=== PATIENT | female | born 1945 | race Caucasian/White ===

== ENCOUNTER → 2018-08-07 | Outpatient (CLI) | payer MEDICARE, OTHER ==
--- NOTE | 2018-08-07 15:26 | RAD ---
EXAM: Right lower extremity bone length study. HISTORY: Pain. Tracy and Nephew protocol. COMPARISON: None. FINDINGS: Frontal views of the right lower extremity are obtained. There is no fracture, dislocation or subluxation. There is medial compartment joint space narrowing, subchondral sclerosis, subchondral cyst formation and spurring involving the knee. There is also lateral compartment spurring. There is a suspected small intrajugular osteophyte lateral to the tibial spines. IMPRESSION: 1. Medial compartment osteoarthritis of the right knee. 2. No acute osseous finding. Electronically signed by: Eugenia Colindres MD (08/07/2018 3:22 PM) [facility]
--- NOTE | 2018-08-07 16:01 | RAD ---
MR of the right knee - Tracy and Nephew protocol History: Chronic right knee pain, Tracy and nephew protocol.. Technique: Images are obtained in accordance with the standard Tracy and Nephew protocol. Note this is not a diagnostic exam, but solely for the purpose of Tracy and Neph[employer]Read medical staff director construction. Small joint effusion. Medial meniscal tear. Primary osteoarthritis is identified, seen is greatest at the medial joint compartment. Electronically signed by: Alonzo Duenas MD (08/07/2018 3:57 PM) [facility]
== END | disposition home or self-care (01) ==
LOC: RAD 13:55
PROVIDERS: ATTEND Orthopaedic Surgery
DX: Z01.818 Encounter for other preprocedural examination (principal); S83.241A Other tear of medial meniscus, current injury, right knee, initial encounter; M17.11 Unilateral primary osteoarthritis, right knee; M85.661 Other cyst of bone, right lower leg; M76.891 Other specified enthesopathies of right lower limb, excluding foot; M25.461 Effusion, right knee; X58.XXXA Exposure to other specified factors, initial encounter; Y93.89 Activity, other specified; Y92.89 Other specified places as the place of occurrence of the external cause; Y99.8 Other external cause status
CPT/HCPCS: 73721; 77073

== ENCOUNTER → 2018-08-18 | Outpatient (CLI) | payer MEDICARE, OTHER ==
[~2018-08-18] MED LIST: ASCO100T4 PO; ASPI-630 PO; CALC-104 PO; CYAN500T17 PO; FERR325T14 PO; GUAI1CAP16 PO; VITA400C6 PO
[2018-08-18 10:09] LABS: BASO # 0.1 x10^3/uL (0.0-0.2); BASO % 1 % (0-3); EOS # 0.2 x10^3/uL (0.0-0.7); EOS % 3 % (0-3); HEMATOCRIT 42.2 % (36.0-47.0); HEMOGLOBIN 13.6 g/dL (12.0-15.5); LYMPH # 1.5 x10^3/uL (1.0-4.8); LYMPH % 26 % (24-48); MEAN CORPUSCULAR HEMOGLOBIN 29 pg (25-35); MEAN CORPUSCULAR HGB CONC 32 g/dL (31-37); MEAN CORPUSCULAR VOLUME 91 fL (79-100); MONO # 0.4 x10^3/uL (0.0-1.1); MONO % 6 % (0-9); NEUT # 3.6 x10^3uL (1.8-7.7); NEUT % 64 % (31-73); PLATELET COUNT 245 x10^3/uL (140-400); RED BLOOD COUNT 4.64 x10^6/uL (3.50-5.40); RED CELL DISTRIBUTION WIDTH 12.4 % (11.5-14.5); WHITE BLOOD COUNT 5.7 x10^3/uL (4.0-11.0)
[2018-08-18 10:22] LABS: ALBUMIN 3.7 g/dL (3.4-5.0); CALCIUM 9.2 mg/dL (8.5-10.1); CREATININE 0.7 mg/dL (0.6-1.0); GFR 82.3; POTASSIUM 4.2 mmol/L (3.5-5.1)
--- NOTE | 2018-08-18 13:16 | EKG ---
[facility] [address] [place] [address] Test Date: 2018-08-18 Test Time: 13:01:00 Pat Name: DANIELLE URIOSTEGUI Department: Patient ID: [facility]-[id number] Room: Gender: F Sales Enablement Lead: [facility] : 1945 Requested By: JEFRY HILL Order Number: [id number] Reading MD: Laureano Padilla MD Measurements Intervals [place] Rate: 52 P: 45 NE: 144 QRS: 34 QRSD: 70 T: 66 QT: 414 QTc: 387 Interpretive Statements SINUS RHYTHM Electronically Signed On 08-19-2018 10:42:04 HISTORY PROFESSOR by Laureano Padilla MD
--- NOTE | 2018-08-18 15:28 | RAD ---
Examination: CHEST PA LATERAL History: PREOP EVALUATION, HX HYPERTENTION, HX ELEVATED BMI Comparison/Correlation: None Findings: PA and lateral views of chest were obtained. Heart size is normal. Pulmonary vasculature is unremarkable. No pneumothorax. Eventration right hemidiaphragm suggested. No suspicious infiltrate. No pleural effusion or pneumothorax. Osteopenia. Impression: No suspicious process. Electronically signed by: Fabian Swift MD (08/18/2018 3:23 PM) [facility]
[2018-08-18 16:21] LABS: BILIRUBIN,URINE NEGATIVE (NEG); CLARITY,URINE CLEAR; COLOR,URINE YELLOW; NITRITE,URINE NEGATIVE (NEG); PROTEIN,URINE NEGATIVE (NEG-TRACE); UROBILINOGEN,URINE 0.2 mg/dL (0.2 mg/dL)
[2018-08-18 16:28] LABS: BACTERIA,URINE 0 /HPF (0-FEW); RBC,URINE 0 /HPF (0-2); SQUAMOUS EPITHELIAL CELL,UR FEW /LPF; WBC,URINE 0 /HPF (0-4)
== END | disposition home or self-care (01) ==
LOC: SURGPAT 12:17
PROVIDERS: ATTEND Orthopaedic Surgery
DX: Z01.818 Encounter for other preprocedural examination (principal); M17.11 Unilateral primary osteoarthritis, right knee
CPT/HCPCS: 36415; 71046; 80048; 81001; 82040; 82306; 85025; 85610; 85651; 85730; 87641; 93005

== ENCOUNTER 2018-09-09 05:40 | Inpatient (IN) | payer MEDICARE, OTHER ==
--- NOTE | 2018-09-08 19:28 | PDOC1 ---
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 PT has not helped. Celebrex does help. Uses Ice and elevation. She had X-rays in at [facility]. She complains of quite a bit of stiffness. She cannot walk a quarter mile. Has increased pain going downstairs and increasing difficulty on stairs. She would like to keep working. Past Medical History Past Medical History prediabetes, prehypertension Past Surgical History Past Surgical History: Arthroscopy, Cholecystectomy Family History Family History: Family History Unknown Social History Smoke: No ALCOHOL: occassional Current Medications Current Medications Current Medications Morphine Sulfate 5 mg/Ketorolac Tromethamine 30 mg/Ropivacaine 60 ml/ Epinephrine HCl 0.5 mg/Sodium Chloride 100 ml @ 100 mls/hr 1X ONCE INT ART ; Start 09/09/18 at 06:00; Stop 09/09/18 at 06:59 Prochlorperazine Edisylate (Compazine) 5 mg PACU PRN PRN IV NAUSEA, MRX1; Start 09/09/18 at 07:00; Stop 09/10/18 at 06:59 Hydromorphone HCl (Dilaudid) 0.5 mg PRN Q10MIN PRN IV SEV PAIN, Second choice; Start 09/09/18 at 07:00; Stop 09/10/18 at 06:59 Lidocaine HCl (Xylocaine-Mpf 1% 2ml Vial) 2 ml PRN 1X PRN ID IV START; Start at 07:00; Stop 09/10/18 at 06:59 Ringer's Solution 1,000 ml @ 30 mls/hr Q24H IV ; Start 09/09/18 at 07:00; Stop 09/09/18 at 18:59 Morphine Sulfate (Morphine Sulfate) 1 mg PRN Q10MIN PRN IV SEVERE PAIN; Start 09/09/18 at 07:00; Stop 09/10/18 at 06:59 Fentanyl Citrate (Fentanyl 2ml Vial) 50 mcg PRN Q5MIN PRN IV MODERATE TO SEVERE PAIN; Start 09/09/18 at 07:00; Stop 09/10/18 at 06:59 Fentanyl Citrate (Fentanyl 2ml Vial) 25 mcg PRN Q5MIN PRN IV MILD PAIN; Start 09/09/18 at 07:00; Stop 09/10/18 at 06:59 Ondansetron HCl (Zofran) 4 mg PRN Q6HRS PRN IV NAUSEA/VOMITING; Start 09/09/18 at 07:00; Stop 09/10/18 at 06:59 Cefazolin Sodium/ Dextrose 50 ml @ 100 mls/hr 1X PREOP PRN IV PRIOR TO PROCEDURE; Start 09/09/18 at 06:00; Stop 09/09/18 at 18:00 Tranexamic Acid 1000 mg/Sodium Chloride 60 ml @ 60 mls/hr 1X PERIOP ONCE INJ ; Start 09/09/18 at 06:00; Stop 09/09/18 at 06:59 Tranexamic Acid 1000 mg/Sodium Chloride 60 ml @ 60 mls/hr 1X PERIOP ONCE INJ ; Start 09/09/18 at 08:00; Stop 09/09/18 at 08:59 Active Scripts Active Reported Vitamin E (Vitamin E (Dl,Tocopheryl Acet)) 400 Unit Capsule 400 Unit PO DAILY Aspirin 81 Mg Tab.chew 81 Mg PO DAILY Robitussin Qzdkt-Krpqx-Muxq Dm (Guaifenesin/Dextromethorphan) 1 Each Capsule 1 Each PO PRN DAILY PRN B-12 (Cyanocobalamin (Vitamin B-12)) 500 Mcg Tablet 500 Mcg PO DAILY Vitamin C (Ascorbic Acid) 100 Mg Tablet 1,000 Mg PO DAILY Citracal + D Maximum Caplet (Calcium Citrate/Vitamin D3) 1 Each Tablet 1 Each PO DAILY Ferrous Sulfate 325 Mg Tablet 30 Mg PO DAILY Allergies Allergies: Coded Allergies: No Known Drug Allergies (Unverified , 08/14/18) ROS Review of System CONSTITUTIONAL: Fever denies. Chills denies. Weight gain denies. Weakness none. weight loss denies. Fatigue none. OPHTHALMOLOGY: Blurred vision none. Double vision denies. Change in vision none. ENT: Hearing loss none. Change in voice denies. Rhinorrhea none. CARDIOLOGY: Palpitations none. Shortness of breath denies. Chest pain denies. GASTROENTEROLOGY: Diarrhea denies. Vomiting none. Dysphagia none. UROLOGY: Voiding normally yes. Hematuria none. MUSCULOSKELETAL: Chronic back or neck pain denies. Swelling of the feet, hands, ankles and /or legs denies. Joint pain no. DERMATOLOGY: Rash denies. Lumps none. NEUROLOGY: Dizziness/lightheadedness denies. Double vision, temporary blindness denies. Tingling/numbness none. PSYCHOLOGY: Change in mood or personality denies. Memory loss none. ENDOCRINOLOGY: Obesity denies. Fatigue none. Weight loss none. HEMATOLOGY/LYMPH: Hepatitis denies. Enlarged lymph nodes denies. Physical Exam General: Alert, Cooperative, No acute distress HEENT: Atraumatic Lungs: Normal air movement Heart: RRR Abdomen: Soft Extremities: No clubbing, No cyanosis, No edema, Normal pulses, Other (Knee The RIGHT knee shows a mildly antalgic gait. There is varus alignment. No masses. No detectable effusion. Tenderness on the joint lines. Range of motion is 0-120 degrees. There is crepitus with range of motion, and pain at the extremes of motion. The knee is stable to varus and valgus stress without subluxation or laxity. Muscle strength is slightly weak for the quadriceps 4+/5 which may be due to pain or avoidance, and does not seem neurogenic, and the muscle tone and bulk is slightly decreased. The hamstring strength is 5/5. The skin is normal with no scars, rashes, lesions or ulcers. Light touch sensation is intact. Trace edema edema and no varicosities. Dorsalis pedis pulse is intact and capillary refill is normal. ) Skin: No rashes, No breakdown, No significant lesion Neuro: Normal speech, Sensation intact Psych/Mental Status: Mental status NL, Mood NL Images Images I reviewed her x-rays from 2018 from [facility], showing [id number] arthritis of both knees medially. [facility] [address] [place], [place] [id number] IMAGING REPORT Signed PATIENT: DANIELLE URIOSTEGUI ACCOUNT: [id number] : 1945 LOCATION: [facility] AGE: 73 SEX: F EXAM STATUS: REG CLI ORD. PHYSICIAN: JEFRY HILL MD REASON: PROCEDURE: LOWER EXT JOINT WO RT MR of the right knee - Tracy and Nephew protocol History: Chronic right knee pain, Tracy and nephew protocol.. Technique: Images are obtained in accordance with the standard Tracy and Nephew protocol. Note this is not a diagnostic exam, but solely for the purpose of Tracy and Nephew medical case manager construction. Small joint effusion. Medial meniscal tear. Primary osteoarthritis is identified, seen is greatest at the medial joint compartment. Electronically signed by: Kari Duenas MD (08/07/2018 3:57 PM) [facility] DICTATED and SIGNED BY: KARI DUENAS MD DATE: 08/07/18 1554 VTE Prophylaxis Ordered VTE Prophylaxis Devices: Yes VTE Pharmacological Prophylaxi: Yes Assessment/Plan Assessment/Plan 73-year-old relatively healthy woman with bone on bone arthritis of both knees. I recommend right total knee arthroplasty at this time. We discussed the potential risks of infection, neurovascular injury, bleeding, blood clots, need for revision surgery, or other potential surgical or anesthetic complications. All of her questions about surgery were answered and she desires to proceed. I recommended the patient matched cutting blocks which have been manufactured. JEFRY HILL MD Sep 08, 2018 19:28
[~2018-09-09] VITALS: Ht 154.9 cm; Wt 70.3 kg
[2018-09-09] VITALS (8 sets, daily range): BP systolic 120–137; BP diastolic 50–58
[2018-09-09] MEDS ORDERED: TRANEXAMIC ACID 1,000 MG in IV NORMAL SALINE 50ML 50 ML INJ ONE ×2 (06:00→08:00)
[2018-09-09] MEDS ORDERED: MORPHINE SULFATE 5 MG, KETOROLAC 30MG VIAL 30 MG, ROPIVacaine 0.5% PF 60 ML, EPINEPHrin... INT ART ONE ×5 (06:00)
[2018-09-09] MEDS ORDERED: ATOR10TA PO (06:13)
[2018-09-09] MEDS: HYDROcodone/APAP 7.5/325MG 1 TAB TABLET PO PRN ×2 (06:26→11:50)
[2018-09-09] MEDS ORDERED: VANCOMYCIN 1 GM VIAL. ONE ×2 (06:53)
[2018-09-09] MEDS ORDERED: TOBRAMYCIN POWDER 1.2 GM VIAL. ONE ×3 (06:53→06:54)
[2018-09-09] MEDS ORDERED: LIDOCAINE 2% PF 5 ML VIAL. ONE (06:56)
[2018-09-09] MEDS ORDERED: MIDAZOLAM HCL/PF 2 MG/2 ML VIAL. ONE (06:56)
[2018-09-09] MEDS ORDERED: PROPOFOL 20 ML IV ONE (06:56)
[2018-09-09] MEDS ORDERED: FAMOTIDINE 20 MG/2 ML VIAL ONE (06:56)
[2018-09-09] MEDS ORDERED: ROCURONIUM 50 MG/5 ML VIAL. ONE (06:56)
[2018-09-09] MEDS ORDERED: DEXAMETHASONE SOD PHOS 20 MG/5 ML VIAL. ONE (06:56)
[2018-09-09] MEDS ORDERED: ONDANSETRON PF 4 MG/2 ML VIAL. ONE (06:56)
[2018-09-09] MEDS ORDERED: fentaNYL PF VIAL 100 MCG/2 ML VIAL ONE ×2 (06:56→08:16)
[2018-09-09] MEDS ORDERED: HYDROmorphone 2 MG/ML VIAL IV PRN (07:00)
[2018-09-09] MEDS ORDERED: PROCHLORPERAZINE 10 MG/2 ML VIAL. IV PRN (07:00)
[2018-09-09] MEDS ORDERED: ONDANSETRON PF 4 MG/2 ML VIAL. IV PRN (07:00)
[2018-09-09] MEDS ORDERED: fentaNYL PF VIAL 100 MCG/2 ML VIAL IV PRN ×3 (07:00→17:00)
[2018-09-09] MEDS ORDERED: LIDOCAINE 1% PF 2 ML VIAL. ID PRN (07:00)
[2018-09-09] MEDS ORDERED: IV RINGERS,LACTATED 1000ML 1,000 ML IV SCH (07:00)
[2018-09-09] MEDS ORDERED: MORPHINE SULFATE 2 MG/ML VIAL. IV PRN (07:00)
[2018-09-09] MEDS ORDERED: 0.9 % SODIUM CHLORIDE 20 ML VIAL. IJ ONE (07:57)
[2018-09-09] MEDS ORDERED: GLYCOPYRROLATE 1 MG/5 ML VIAL. ONE (08:01)
[2018-09-09] MEDS ORDERED: DESFLURANE > 120 MINUTES IH ONE (09:04)
[2018-09-09] MEDS ORDERED: NEOSTIGMINE 10 MG/10 ML VIAL. ONE (09:10)
[2018-09-09] MEDS ORDERED: diphenhydrAMINE 50 MG/ML VIAL ONE (09:33)
--- NOTE | 2018-09-09 10:22 | PDOC4 ---
Operative Note Operative Note Date of Procedure: September 09, 2018 Pre-Op Diagnosis: Unilateral primary osteoarthritis, right knee. M17.11 Post-Op Diagnosis: same Procedure: right total knee arthroplasty with patella resurfacing, CPT 48148 Surgeon: Jefry Medrano MD Anesthesia: General EBL: 150 mL Specimens Obtained: right knee bone and soft tissue Complications: none Implant Company: [employer] Drains: hemovac plus pain catheter Tourniquet time: 53 Minutes Tourniquet Pressure: 350 mm Hg Indications for Procedure: Arthritis pain unrelieved by nonoperative management. Findings: Severe osteoarthritis with bone on bone contact medially with full thickness cartilage loss in the patellofemoral and lateral compartments Implants used: Size 3 right bicruciate stabilized Journey II BCS cobalt chrome femoral component, size 2 right Journey nonporous tibial baseplate, size 1-2 13 mm right Journey II BCS XLPE articular insert, 29 mm oval Sarita II resurfacing patellar component Procedure in Detail: The patient was identified in the preoperative holding area, and the correct right lower extremity was marked by me. The patient was taken to the operating room where the patient was anesthetized by the Department of Anesthesia. Preoperative antibiotics were given intravenously. Tranexamic acid 1 g was given intravenously for intraoperative hemostasis. A "time-out" procedure was performed. The patient was positioned supine on the operative table with a tourniquet on the upper right thigh. The right lower limb was thoroughly scrubbed, then sterile surgical prep solution was applied, and the limb was draped in sterile fashion. An impervious stockinet and adhesive drape were used such that the skin was entirely covered. An Soto leg mejia was used. The operating team wore personal exhaust-ventilated hoods. The limb exsanguinated with an Esmarch bandage, and the tourniquet was inflated. A midline skin incision was made with a scalpel using the patella and tibial tubercle as landmarks. Electrocautery was used for hemostasis. My assistant plant control operator used rake retractors. A medial parapatellar arthrotomy incision was used with extension into the distal quadriceps tendon. The patella was retracted laterally and Hohmann retractors were now used by my assistant plant control operator. Excess synovium, the menisci, and the cruciate ligaments were resected sharply. The patella was assessed and excess synovium and osteophytes around the patellar articulation were removed. The patella was measured with a caliper, cut freehand with a saw using caliper measurements, sized, and then drilled for an oval three-pegged patella component. A periarticular multimodal ropivacaine anesthetic injection was used in the suprapatellar pouch and distal quadriceps muscle. Whitesides's line and the transepicondylar axis were marked on the femur. A [employer] patient matched cutting block was pinned to the distal femur and a distal femoral cut was made with an oscillating saw. My assistant plant control operator held Hohmann retractors and an [facility] retractor to protect the medial and lateral collateral ligaments, the patellar tendon, the skin and the other soft tissues. A 5-in-1 Journey II cutting guide was then applied and pinned to the femur. The posterior, anterior, and all chamfer cuts were made with the oscillating saw. The [employer] patient matched cutting guide was pinned to the tibia and rotational alignment and the planned resection thickness assessed. An external alignment ghazal was used to verify the planned cut in the varus-valgus plane and regarding posterior slope referencing the tibial tubercle, the tibial shaft, the ankle joint, and the second metatarsal. The upper tibia was cut made with an oscillating saw. My assistant plant control operator held Hohmann retractors and a posterior cruciate ligament retractor to protect the medial and lateral collateral ligaments, the patellar tendon, the skin, the peroneal nerve and the other soft tissues. The upper tibia was sized with a trial baseplate. The posterior compartment was cleared of osteophytes and loose bodies. The periarticular anesthetic injection was used in the posterior compartment. The box cut for a posterior stabilized component was made. A preliminary reduction was performed with a trial femur, trial tibial baseplate and trial polyethylene. Soft-tissue balancing was now performed, and extension and rotation of the alignments was checked using a guide ghazal in the tibial trial and a guide pin in the femur. A medial release was required, using a 10 blade scalpel, and a Healy elevator to elevate the medial structures from the upper medial tibia. The stability was assessed using different thicknesses of tibial articular surface to find satisfactory stability and good range of motion. The rotation of the tibial component was marked on the upper tibia. Final trial reduction was now performed verifying patella tracking and tibiofemoral stability and alignment. The tibia preparation was completed with a drill, saw, and fin punch at the previously noted rotation. The final implants were verified and opened. Outer gloves were changed by the operating team. The bone cuts were washed thoroughly with the Nael InterPulse device and dried. Two packages of Tracy + Nephew Rally MV bone cement were mixed in powdered form with Vancomycin 1gm and Tobramycin 1.2 gm, and then vacuum-mixed with the monomer, and placed into a cement gun. The cut surfaces of the bone were thoroughly dried with Álvarez-tip suction and with laparotomy sponges for cement interdigitation. The final components were cemented into place. The knee was kept at full extension while the cement hardened, and excess cement was removed. A Betadine lavage was used throughout the surgical exposure, and allowed to sit in contact with the exposed joint surfaces for three minutes while the cement hardened. Tranexamic acid 1 g was redosed intravenously for additional intraoperative hemostasis. The tourniquet was released, and electrocautery was used for hemostasis. A final periarticular anesthetic injection was used for pain relief. A final check of [id number]-[id number] and stability was made, and the polyethylene implant final size was chosen. The polyethylene implant was secured to the tibial baseplate, and the knee was reduced a final time and range of motion and stability was confirmed. Thorough irrigation was used. Hemovac and pain catheter were used.The arthrotomy was closed with interrupted [id number]-wr-[id number] # 1 PDS suture. The arthrotomy incision was then run with #1 STRATAFIX Symmetric PDS Plus Knotless suture. The subcutaneous tissues were reapproximated initially with 2-0 PDS . Next the subcuticular layer was reapproximated in a running fashion with #3-0 Stratafix suture by dc. The skin incision was then covered and reinforced with Acticoat , followed by a LIZETH single use negative pressure wound therapy dressing Soft roll and an Tod wrap were applied. Needle and sponge counts were correct. There were no apparent complications. The patient returned to the recovery room in stable condition. JEFRY MEDRANO MD Sep 09, 2018 10:22
--- NOTE | 2018-09-09 10:45 | NUR ---
Arrived on the unit by bed from PACU. Awake with no c/o at this time. Right knee elevated on pillow and ice packs. Dressing on right knee is d/i with LIZETH, IAC and Hemovac drain. Able to wiggle toes easily, warm to touch and pedal pulses + bilaterally. IVF's intact and infusing. O2 at 2l per n/c. ALEKSANDER and SCD on left leg and KINA on right foot. Oriented to room and controls. Side rails up x's 2 with call light in reach. Cont. monitor.
--- NOTE | 2018-09-09 11:00 | RAD ---
EXAM: Right knee, 2 views. HISTORY: Arthroplasty. COMPARISON: None. FINDINGS: 2 views of the right knee are obtained. There is a right knee arthroplasty in expected position. There is surrounding soft tissue gas, joint fluid and a drain due to recent surgery. IMPRESSION: Right knee arthroplasty in expected position. Electronically signed by: Eugenia Colindres MD (09/09/2018 10:57 AM) [id number]
[2018-09-09] MEDS ORDERED: WARFARIN 7.5 MG TABLET. PO ONE (16:00)
[2018-09-09] MEDS ORDERED: IV NORMAL SALINE 1000ML BAG 1,000 ML IV SCH (16:52)
[2018-09-09] MEDS ORDERED: MORPHINE SULFATE 4 MG/ML VIAL. IV PRN (17:00)
[2018-09-09] MEDS ORDERED: ZOLPIDEM 5 MG TABLET. PO PRN (17:00)
[2018-09-09] MEDS ORDERED: 0.9 % SODIUM CHLORIDE 10 ML DISP.SYRIN. IV PRN (17:00)
[2018-09-09] MEDS ORDERED: CALCIUM CARBONATE 500 MG TAB.CHEW PO PRN (17:00)
[2018-09-09] MEDS ORDERED: oxyCODONE IR 5 MG TABLET PO PRN ×2 (17:00)
[2018-09-09] MEDS ORDERED: PROCHLORPERAZINE 5 MG TABLET. PO PRN (17:00)
[2018-09-09] MEDS ORDERED: METOCLOPRAMIDE HCL 10 MG/2 ML VIAL. IV PRN (17:00)
[2018-09-09] MEDS ORDERED: diphenhydrAMINE 50 MG/ML VIAL IV PRN (17:00)
[2018-09-09] MEDS: FERROUS SULFATE 325 MG TABLET. PO SCH (17:33)
[2018-09-09 17:54] LABS: PROTHROMBIN TIME PATIENT 13.7 SEC (11.7-14.0)
[2018-09-09] MEDS: KETOROLAC 30MG VIAL 30 MG, BUPIVACAINE MPF 0.25% 20 ML, EPINEPHrine 0.5 MG in TOTAL VOL... INT ART SCH (17:57)
[2018-09-09] MEDS: ASPIRIN ENTERIC COATED 325 MG TABLET.DR. PO SCH (21:03)
[2018-09-09] MEDS: ATORVASTATIN CALCIUM 10 MG TABLET. PO SCH (21:03)
[2018-09-10 03:11] VITALS: BP 124/46
[2018-09-10 05:09] LABS: PROTHROMBIN TIME PATIENT 13.9 SEC (11.7-14.0)
[2018-09-10] MEDS ORDERED: MAGNESIUM HYDROXIDE 2,400 MG/30 ML ORAL.SUSP. PO PRN (06:00)
[2018-09-10 06:40] VITALS: BP 134/51
[2018-09-10] MEDS: KETOROLAC 30MG VIAL 30 MG, BUPIVACAINE MPF 0.25% 20 ML, EPINEPHrine 0.5 MG in TOTAL VOL... INT ART SCH (06:42)
[2018-09-10] MEDS: MULTIVITAMIN with MINERAL TABLET. PO SCH (08:38)
[2018-09-10] MEDS: SENNOSIDES/DOCUSATE 8.6/50MG TABLET. PO SCH (08:39)
[2018-09-10] MEDS: CALCIUM CARB/VIT D3 500/200 TABLET. PO SCH (08:39)
[2018-09-10] MEDS: MELOXICAM 7.5 MG TABLET PO SCH (08:39)
[2018-09-10] MEDS: ASPIRIN ENTERIC COATED 325 MG TABLET.DR. PO SCH ×2 (08:39→20:51)
[2018-09-10] MEDS: ACETAMINOPHEN 500 MG TABLET PO SCH ×2 (08:39→20:51)
[2018-09-10] MEDS: FERROUS SULFATE 325 MG TABLET. PO SCH ×2 (08:39→17:13)
[2018-09-10] MEDS ORDERED: ONDANSETRON ODT 4 MG TAB.RAPDIS. PO PRN (12:00)
[2018-09-10] MEDS ORDERED: ONDANSETRON PF 4 MG/2 ML VIAL. IV PRN (12:00)
--- NOTE | 2018-09-10 15:06 | PDOC ---
PROGRESS NOTES Subjective Subjective Pain controlled. No complaints. Objective Vital Signs Vital Signs Date Time Temp Pulse Resp B/P (MAP) Pulse Ox O2 Delivery O2 Flow Rate FiO2 09/10/18 08:25 Room Air 09/10/18 06:40 97.6 55 18 134/51 (78) 95 97.6 09/09/18 11:50 2.0 Physical Exam Dressing intact and dry. Hemovac and pain catheter in place. Thigh and calf soft. Good active range of motion of foot including dorsiflexion and plantar flexion. Cap refill at toes intact. No signs of compartment syndrome, DVT or neurovascular injury. Labs Laboratory Tests Test 09/09/18 17:40 09/10/18 03:30 Prothrombin Time 13.7 SEC (11.7-14.0) 13.9 SEC (11.7-14.0) Prothromb Time International Ratio 1.1 (0.8-1.1) 1.1 (0.8-1.1) Laboratory Tests Test 09/09/18 17:40 09/10/18 03:30 Prothrombin Time 13.7 SEC (11.7-14.0) 13.9 SEC (11.7-14.0) Prothromb Time International Ratio 1.1 (0.8-1.1) 1.1 (0.8-1.1) Imaging Postop X-rays reviewed by me. Satisfactory TKA alignment, without apparent complications. Assessment Assessment POD 1 TKA Plan Plan of Care Continue POC including PT and DVT prophylaxis JEFRY HILL MD Sep 10, 2018 15:06
[2018-09-10] MEDS ORDERED: BISACODYL 10 MG SUPP.RECT. PR PRN (16:00)
[2018-09-10 17:59] VITALS: BP 156/57
[2018-09-10] MEDS: ATORVASTATIN CALCIUM 10 MG TABLET. PO SCH (20:51)
[2018-09-10 21:00] VITALS: BP 149/50
[2018-09-11 04:49] LABS: HEMATOCRIT 31.6 % (36.0-47.0); HEMOGLOBIN 10.5 g/dL (12.0-15.5)
[2018-09-11 04:58] LABS: PROTHROMBIN TIME PATIENT 13.5 SEC (11.7-14.0)
[2018-09-11 06:11] VITALS: BP 145/60
[2018-09-11] MEDS: MULTIVITAMIN with MINERAL TABLET. PO SCH (08:39)
[2018-09-11] MEDS: ACETAMINOPHEN 500 MG TABLET PO SCH ×2 (08:39→20:54)
[2018-09-11] MEDS: CALCIUM CARB/VIT D3 500/200 TABLET. PO SCH (08:39)
[2018-09-11] MEDS: FERROUS SULFATE 325 MG TABLET. PO SCH ×2 (08:39→16:49)
[2018-09-11] MEDS: ASPIRIN ENTERIC COATED 325 MG TABLET.DR. PO SCH ×2 (08:39→20:54)
[2018-09-11] MEDS: MELOXICAM 7.5 MG TABLET PO SCH (08:39)
[2018-09-11] MEDS: SENNOSIDES/DOCUSATE 8.6/50MG TABLET. PO SCH (08:42)
[2018-09-11] MEDS: HYDROcodone/APAP 7.5/325MG 1 TAB TABLET PO PRN ×2 (09:57→14:58)
--- NOTE | 2018-09-11 11:00 | NUR ---
Had episode of dizziness during therapy and low BP. Return to room in a recliner with head back in lying position and cold wash clothe placed on forehead. BP 130/46 with hrt rate 58. Stated felt better. Daughter at bedside. Cont. monitor.
--- NOTE | 2018-09-11 11:34 | NUR ---
Rechecked BP 133/52 and hrt rate 59. No c/o at this time. Placed pt up to sitting position. Doing well. C/o monitor.
--- NOTE | 2018-09-11 12:29 | PDOC ---
PROGRESS NOTES Subjective Subjective No c/o now. Got lightheaded in PT (and BP was low at the time) but BP normal now , and Hgb > 10 so probably a vasovagal episode. Patient/family reports she passes out at the sight of blood. Objective Vital Signs Vital Signs Date Time Temp Pulse Resp B/P (MAP) Pulse Ox O2 Delivery O2 Flow Rate FiO2 09/11/18 11:00 Room Air 09/11/18 06:11 98.0 62 18 145/60 (88) 96 98.0 09/09/18 11:50 2.0 Physical Exam PIC dressing with spotty drainage only. Pain catheter and hemovac have been removed. Minimal erythema/warmth. Single lateral 1 cm clear blister, not at incision. Calf soft, NT, and Homans neg. Good AROM for ankle DF/PF. Able to lift leg off of bed. Not yet ambulating safely in PT. Labs Laboratory Tests Test 09/09/18 17:40 09/10/18 03:30 09/11/18 04:30 Prothrombin Time 13.7 SEC (11.7-14.0) 13.9 SEC (11.7-14.0) 13.5 SEC (11.7-14.0) Prothromb Time International Ratio 1.1 (0.8-1.1) 1.1 (0.8-1.1) 1.1 (0.8-1.1) Hemoglobin 10.5 g/dL (12.0-15.5) Hematocrit 31.6 % (36.0-47.0) Mean Corpuscular Hemoglobin Concent 33 g/dL (31-37) Laboratory Tests Test 09/11/18 04:30 Hemoglobin 10.5 g/dL (12.0-15.5) Hematocrit 31.6 % (36.0-47.0) Mean Corpuscular Hemoglobin Concent 33 g/dL (31-37) Prothrombin Time 13.5 SEC (11.7-14.0) Prothromb Time International Ratio 1.1 (0.8-1.1) Assessment Assessment POD 2 TKA Plan Plan of Care Continue PT and DVT proph. Discharge planning for tomorrow. JEFRY HILL MD Sep 11, 2018 12:29
--- NOTE | 2018-09-11 17:09 | PATHOLOGY ---
[facility] Accession Number: [id number] . 01 Material submitted: . RIGHT KNEE BONE AND SOFT TISSUE . 01 Clinical history: . Osteoarthritis . 02 Diagnosis: Segments of bone and soft tissue, right knee arthroplasty: - Advanced degenerative arthritis. (JPM:maria esther; 09/11/2018) QMS/09/11/2018 . 02 Electronically signed: . Oliver Guaman MD, Pathologist NPI- [id number] . 01 Gross description: . Received in formalin labeled "Jazmin Henriquez, right knee bone and soft tissue," are multiple segments of bone, including tibial plateau, measuring 13.2 x 9.3 x 2.4 cm in aggregate dimensions. Soft tissue and possible meniscus are present. The specimen displays focal eburnation of the articular surfaces. Station Mechanic Apprentice bone and soft tissue are submitted in cassette A1, following decalcification. (DAC; 09/10/2018) XDC/XDC . 02 Pathologist provided ICD-10: M17.11 . 02 CPT . 012621, [id number] Specimen Comment: A courtesy copy of this report has been sent to Specimen Comment: [phone], , . Specimen Comment: Report sent to ,DR EDEN / DR MINER Performed at: 01 [facility] [address], [place] [id number] MD Solomon Bergman MD Phone: [phone] Performed at: 02 [facility] [address] [place], [place] [id number] MD Oliver Guaman MD Phone: [phone]
[2018-09-11 18:29] VITALS: BP 167/60
[2018-09-11] MEDS: ATORVASTATIN CALCIUM 10 MG TABLET. PO SCH (20:54)
[2018-09-12 05:33] LABS: HEMATOCRIT 30.4 % (36.0-47.0); HEMOGLOBIN 10.2 g/dL (12.0-15.5)
[2018-09-12 06:07] LABS: PROTHROMBIN TIME PATIENT 14.3 SEC (11.7-14.0)
[2018-09-12 06:30] VITALS: BP 128/57
[2018-09-12] MEDS: MELOXICAM 7.5 MG TABLET PO SCH (07:54)
[2018-09-12] MEDS: ASPIRIN ENTERIC COATED 325 MG TABLET.DR. PO SCH (07:55)
[2018-09-12] MEDS: SENNOSIDES/DOCUSATE 8.6/50MG TABLET. PO SCH (07:55)
[2018-09-12] MEDS: CALCIUM CARB/VIT D3 500/200 TABLET. PO SCH (07:55)
[2018-09-12] MEDS: MULTIVITAMIN with MINERAL TABLET. PO SCH (07:55)
[2018-09-12] MEDS: FERROUS SULFATE 325 MG TABLET. PO SCH (07:55)
[2018-09-12] MEDS: ACETAMINOPHEN 500 MG TABLET PO SCH (07:57)
--- NOTE | 2018-09-12 10:01 | PDOC ---
PROGRESS NOTES Subjective Subjective No complaints. Planning on discharge today to home. Objective Vital Signs Vital Signs Date Time Temp Pulse Resp B/P (MAP) Pulse Ox O2 Delivery O2 Flow Rate FiO2 09/12/18 07:08 Room Air 09/12/18 06:30 98.3 74 18 128/57 (80) 18 98.3 09/11/18 19:49 2.0 Physical Exam LIZETH intact but one bloody spot. Good AROM ankle. Calf soft and nontender. Minimal warmth or erythema. Still has a lateral blister, still clear (serous), slightly larger. I changed the LIZETH and there are some smaller blisters near the incision. Will prophylax with clindamycin. Doubtful a knee joint culture would be of benefit at this point and would have its own risks. Discussed with patient and daughter my recommendation for prophylaxis without current culture. Xeroform placed on blister outside the LIZETH, incision and other blisters swabbed with Chlorhexidine and covered with Acticoat and new LIZETH. Labs Laboratory Tests Test 09/11/18 04:30 09/12/18 04:25 Hemoglobin 10.5 g/dL (12.0-15.5) 10.2 g/dL (12.0-15.5) Hematocrit 31.6 % (36.0-47.0) 30.4 % (36.0-47.0) Mean Corpuscular Hemoglobin Concent 33 g/dL (31-37) 34 g/dL (31-37) Prothrombin Time 13.5 SEC (11.7-14.0) 14.3 SEC (11.7-14.0) Prothromb Time International Ratio 1.1 (0.8-1.1) 1.1 (0.8-1.1) Laboratory Tests Test 09/12/18 04:25 Hemoglobin 10.2 g/dL (12.0-15.5) Hematocrit 30.4 % (36.0-47.0) Mean Corpuscular Hemoglobin Concent 34 g/dL (31-37) Prothrombin Time 14.3 SEC (11.7-14.0) Prothromb Time International Ratio 1.1 (0.8-1.1) Assessment Assessment POD #3 TKA Plan Plan of Care Will Rx Clindamycin due to blisters. Discharge planning for today. Continue PT and DVT prophylaxis. F/U 10-14 days in office. JEFRY HILL MD Sep 12, 2018 10:01
[2018-09-12] MEDS ORDERED: OXYC1TAB15 PO (10:07)
[2018-09-12] MEDS ORDERED: CELE200C PO (10:07)
--- NOTE | 2018-09-12 10:09 | PDOC3 ---
Discharge Summary Visit Information Date of Admission: Sep 09, 2018 Date of Discharge: Sep 12, 2018 Final Diagnosis right knee osteoarthritis m17.11 Brief Hospital Course Allergies Allergies Coded Allergies Type Severity Reaction Last Updated Verified No Known Drug Allergies 09/09/18 No Vital Signs Vital Signs Date Time Temp Pulse Resp B/P (MAP) Pulse Ox O2 Delivery O2 Flow Rate FiO2 09/12/18 07:08 Room Air 09/12/18 06:30 98.3 74 18 128/57 (80) 18 98.3 09/11/18 19:49 2.0 Lab Results Laboratory Tests Test 09/11/18 04:30 09/12/18 04:25 Hemoglobin 10.5 g/dL (12.0-15.5) 10.2 g/dL (12.0-15.5) Hematocrit 31.6 % (36.0-47.0) 30.4 % (36.0-47.0) Mean Corpuscular Hemoglobin Concent 33 g/dL (31-37) 34 g/dL (31-37) Prothrombin Time 13.5 SEC (11.7-14.0) 14.3 SEC (11.7-14.0) Prothromb Time International Ratio 1.1 (0.8-1.1) 1.1 (0.8-1.1) Laboratory Tests Test 09/12/18 04:25 Hemoglobin 10.2 g/dL (12.0-15.5) Hematocrit 30.4 % (36.0-47.0) Mean Corpuscular Hemoglobin Concent 34 g/dL (31-37) Prothrombin Time 14.3 SEC (11.7-14.0) Prothromb Time International Ratio 1.1 (0.8-1.1) Brief Hospital Course 73 old who presented with knee osteoarthritis, for elective total knee arthroplasty. The patient underwent total knee arthroplasty under general anesthesia the day of admission. Perioperative antibiotics and DVT prophylaxis were used. Postoperatively physical therapy and case management were consulted. The patient progressed and is stable for discharge. Discharge Information Condition at Discharge: Stable Follow Up: Weeks Disposition/Orders: D/C to Home Scheduled Ascorbic Acid (Vitamin C), 1,000 MG PO DAILY, (Reported) Atorvastatin Calcium (Lipitor), 1 TAB PO QHS, (Reported) Calcium Citrate/Vitamin D3 (Citracal + D Maximum Caplet), 1 EACH PO DAILY, ( Reported) Cyanocobalamin (Vitamin B-12) (B-12), 500 MCG PO DAILY, (Reported) Ferrous Sulfate (Ferrous Sulfate), 30 MG PO DAILY, (Reported) Vitamin E (Dl,Tocopheryl Acet) (Vitamin E), 400 UNIT PO DAILY, (Reported) Scheduled PRN Guaifenesin/Dextromethorphan (Robitussin Lvgfi-Rfryf-Vbns Dm), 1 EACH PO PRN DAILY PRN for COUGH, (Reported) Discontinued Medications Aspirin (Aspirin), 81 MG PO DAILY, (Reported) Patient Instructions Patient Instructions Patient Instructions Continue to WBAT with walker. Keep dressing dry and intact. F/U with Dr Medrano in 10-14 days. Call for appointment. Physical therapy for TKA Continue DVT prophylaxis. JEFRY MEDRANO MD Sep 12, 2018 10:09
[2018-09-12] MEDS ORDERED: LACT1CAP29 PO (10:43)
[2018-09-12] MEDS ORDERED: CLIN300C8 PO (10:43)
[2018-09-12] MEDS ORDERED: ASPI325T8 PO (10:51)
--- NOTE | 2018-09-12 12:46 | NUR ---
Patients LIZETH dressing was removed by Dr Medrano due to a blister forming on the right side of her incision. When removed he found roughly 4-5 closed blisters by her incision as well as the blister that was seen outside of it. Incision and area cleaned with chloroprep and a new LIZETH dressing was applied. Xeroform was applied on the blister to the right of of incision/LIZETH, as well as the patients drain sites, and then covered with a foam dressing. LIZETH dressing care was given to the patient and her daughter as well as instructions on how to change the foam dressings/xeroform as needed. Discharge education for all of the patients needs/care was performed by this nurse, Dr Medrano, case management, and therapy. No concerns noted from the patient or her daughter. The patient was started on an antibiotic and a probiotic due to the blisters that are forming on her operative knee, the patient and her daughter are aware and state understanding. Scripts were given to the patient for percocet, celebrex, an antibiotic, and a probiotic. Patient already has aspirin at home. Will continue to monitor.
[2018-09-12] MEDS: HYDROcodone/APAP 7.5/325MG 1 TAB TABLET PO PRN (13:02)
--- NOTE | 2018-09-12 13:21 | DISCH ---
DISCHARGE WITH HOME HEALTH DISCHARGE INFORMATION: Discharge Date: Sep 12, 2018 Final Diagnosis: Osteoarthritis right knee Condition on Discharge: Stable CODE STATUS: Code Status: Full HOME HEALTH: Face to Face: I certify this patient is under my care and that I, or a nurse practitioner or physician's bankruptcy legal assistant working with me, had a face to face encounter that meets the physician face to face encounter requirements with this patient on []. Medical Complications: S/P Joint Replacement Assisted For: Assess & Educate Safety, Medication Management Physical Therapy For: Evalulation/Treatment Occupational Therapy For: ADL's Pt Meets Homebound Status: Poor coordination w/ amb., Limited distance walking POST DISCHARGE ORDERS: Activity Instructions for Disc: Activity as tolerated, Progressive ambulation Weight Bearing Status after Di: As tolerated Bathing Instructions: Shower-keep dressing dry, No Tub Bath until see DIET AFTER DISCHARGE: Regular Wound/Incision Care: Ice to area for comfort, Keep wound/cast CDI, Keep wound elevated, Do not change dressing, Reinforce dressing PRN Other wound/incision instructi: DO NOT change LIZETH dressing. On 09/16 disconnect from battery pack CHECKS AFTER DISCHARGE: Checks after discharge: Check blood press - daily FOLLOW-UP: Follow Up With: Dr Medrano in 10-14 days [phone] CERTIFICATION STATEMENT: Certification Statement: Certification Statement: Based on the above finding, I certify that this patient is confined to the home and needs intermittent jail care, physical therapy and/or speech therapy, or continues to need occupational therapy.~ This patient is under my care, and I have initiated the establishment of the plan of care. This patient will be followed by myself or a community physician who will periodically review the plan of care. Home Meds Active Scripts Lactobacillus Combo No.10 (PROBIOTIC) 1 Each Capsule, 1 EACH PO BID for on antibiotics for 30 Days, #60 CAP Prov:JEFRY MEDRANO MD 09/12/18 Clindamycin Hcl (CLINDAMYCIN HCL) 300 Mg Capsule, 300 MG PO QID for fracture blisters for 10 Days, #40 CAP 0 Refills Prov:JEFRY MEDRANO MD 09/12/18 Oxycodone/Apap 5-325 (PERCOCET 5-325 MG TABLET ) 1 Each Tablet, 1-2 TAB PO PRN Q4HRS PRN for PAIN for 14 Days, #80 TAB 0 Refills Prov:JEFRY MEDRANO MD 09/12/18 Celecoxib (CELEBREX) 200 Mg Capsule, 1 CAP PO DAILY for pain and swelling for 30 Days, #30 CAP 0 Refills Prov:JEFRY MEDRANO MD 09/12/18 Reported Medications Aspirin (ASPIRIN) 325 Mg Tablet, 1 TAB PO BID for DVT prevention, #60 TAB 0 Refills 09/12/18 Atorvastatin Calcium (LIPITOR) 10 Mg Tablet, 1 TAB PO QHS for CHOLESTEROL, #90 TAB 1 Refill 09/09/18 Vitamin E (Dl,Tocopheryl Acet) (VITAMIN E) 400 Unit Capsule, 400 UNIT PO DAILY for SUPPLEMENT, CAP 08/20/18 Guaifenesin/Dextromethorphan (Robitussin Fkuol-Hjrsr-Ntmk Dm) 1 Each Capsule, 1 EACH PO PRN DAILY PRN for COUGH, CAP 08/14/18 Cyanocobalamin (Vitamin B-12) (B-12) 500 Mcg Tablet, 500 MCG PO DAILY for SUPPLEMENT, TAB 08/14/18 Ascorbic Acid (VITAMIN C) 100 Mg Tablet, 1000 MG PO DAILY for SUPPLEMENT, TAB 08/14/18 Calcium Citrate/Vitamin D3 (CITRACAL + D MAXIMUM CAPLET) 1 Each Tablet, 1 EACH PO DAILY for SUPPLEMENT, TAB 08/14/18 Discontinued Reported Medications Ferrous Sulfate (FERROUS SULFATE) 325 Mg Tablet, 30 MG PO DAILY for SUPPLEMENT, TAB 08/14/18 Aspirin (ASPIRIN) 81 Mg Tab.chew, 81 MG PO DAILY for HEART HEALTH, TAB.CHEW 08/20/18 JEFRY MEDRANO MD Sep 12, 2018 13:21
--- NOTE | 2018-09-12 14:45 | NUR ---
Patient and daughter had no questions about their discharge information upon discharge. Patient left with all of her belongings in a wheelchair with her daughter. A walker was given to the patient prior to discharge. Home health set up.
== END 2018-09-12 14:45 | disposition home health service (06) | DRG 470 ==
LOC: OPSVCIP 05:40 → 4 SOUTHEST 10:46
PROVIDERS: ADMIT Orthopaedic Surgery; ATTEND Orthopaedic Surgery
PROC: 0SRC0J9 Replacement of Right Knee Joint with Synthetic Substitute, Cemented, Open Approach (ICD-10-PCS; principal; 2018-09-09 07:10)
DX: M17.11 Unilateral primary osteoarthritis, right knee (principal); Z90.49 Acquired absence of other specified parts of digestive tract; R73.03 Prediabetes
CPT/HCPCS: 36415; 73560; 85014; 85018; 85610; 86850; 86900; 86901; 88305; 88311; A7015; C1713; J0171; J0696; J1100; J1200; J1885; J2001; J2250; J2270; J2405; J2704; J2710; J2795; J3010; J3260; J3370; J3490; J7030; J7120; 97116; 97150; 97530; 97535; A4461; C1769

== ENCOUNTER → 2019-09-15 | Outpatient (CLI) | payer MEDICARE, OTHER ==
[~2019-09-15] MED LIST changes: +ASPI325T8 PO; +ATOR10TA PO; +CELE200C PO; +CLIN300C8 PO; +LACT1CAP29 PO; +OXYC1TAB15 PO
[2019-09-15 13:47] LABS: ALBUMIN 3.7 g/dL (3.4-5.0); CALCIUM 8.8 mg/dL (8.5-10.1); CREATININE 0.8 mg/dL (0.6-1.0); GFR 70.3; POTASSIUM 4.6 mmol/L (3.5-5.1)
--- NOTE | 2019-09-15 14:05 | EKG ---
[facility] [address] [place] [address] Test Date: 2019-09-15 Test Time: 14:05:52 Pat Name: DANIELLE URIOSTEGUI Department: Room: Gender: F Prescription Clerk: RAYMUNDO Zarate : 1945 Requested By: JEFRY HILL Order Number: [id number] Reading MD: Rogerio Pool Measurements Intervals [place] Rate: 58 P: 40 MO: 144 QRS: -5 QRSD: 76 T: 39 QT: 398 QTc: 394 Interpretive Statements SINUS RHYTHM LEFTWARD AXIS OTHERWISE NORMAL ECG Electronically Signed On 09-25-2019 11:40:59 CDT by Rogerio Pool
--- NOTE | 2019-09-15 17:37 | RAD ---
[facility]ST [facility] LATERAL Clinical indications: Preoperative evaluation for knee surgery. The patient is 74 years old. COMPARISON: August 18, 2018. Findings: No acute lung infiltrate or pleural effusion or pulmonary edema or lung mass or pneumothorax is seen. The heart size, pulmonary vasculature, mediastinum and both dao are stable. The osseous structures appear intact. Impression: No acute radiographic abnormality is seen. Electronically signed by: Parish Burnett MD (09/15/2019 5:35 PM) [facility]
[2019-09-16 11:36] LABS: BASO # 0.1 x10^3/uL (0.0-0.2); BASO % 1 % (0-3); EOS # 0.2 x10^3/uL (0.0-0.7); EOS % 2 % (0-3); HEMATOCRIT 41.2 % (36.0-47.0); HEMOGLOBIN 13.8 g/dL (12.0-15.5); LYMPH % 26 % (24-48); MEAN CORPUSCULAR HEMOGLOBIN 30 pg (25-35); MEAN CORPUSCULAR HGB CONC 34 g/dL (31-37); MEAN CORPUSCULAR VOLUME 90 fL (79-100); MONO # 0.5 x10^3/uL (0.0-1.1); MONO % 6 % (0-9); NEUT # 5.1 x10^3/uL (1.8-7.7); NEUT % 65 % (31-73); PLATELET COUNT 226 x10^3/uL (140-400); RED BLOOD COUNT 4.61 x10^6/uL (3.50-5.40); RED CELL DISTRIBUTION WIDTH 13.1 % (11.5-14.5); WHITE BLOOD COUNT 7.8 x10^3/uL (4.0-11.0)
[2019-09-17 23:07] LABS: HEMOGLOBIN A1C 6.4 % (4.8-5.6)
== END | disposition home or self-care (01) ==
LOC: SURGPAT 13:02
PROVIDERS: ATTEND Orthopaedic Surgery
DX: Z01.818 Encounter for other preprocedural examination (principal); M17.12 Unilateral primary osteoarthritis, left knee
CPT/HCPCS: 36415; 71046; 80048; 82040; 82306; 83036; 85025; 85651; 87641; 93005

== ENCOUNTER → 2020-02-12 | Outpatient (CLI) | payer MEDICARE, OTHER ==
[~2020-02-12] MED LIST changes: +METF500T16 PO; +OXYC-325 PO
[2020-02-12 13:29] LABS: BASO # 0.1 x10^3/uL (0.0-0.2); BASO % 1 % (0-3); EOS # 0.1 x10^3/uL (0.0-0.7); EOS % 2 % (0-3); HEMATOCRIT 41.2 % (36.0-47.0); HEMOGLOBIN 13.7 g/dL (12.0-15.5); LYMPH % 26 % (24-48); MEAN CORPUSCULAR HEMOGLOBIN 30 pg (25-35); MEAN CORPUSCULAR HGB CONC 33 g/dL (31-37); MEAN CORPUSCULAR VOLUME 89 fL (79-100); MONO # 0.6 x10^3/uL (0.0-1.1); MONO % 8 % (0-9); NEUT # 4.9 x10^3/uL (1.8-7.7); NEUT % 64 % (31-73); PLATELET COUNT 222 x10^3/uL (140-400); RED BLOOD COUNT 4.62 x10^6/uL (3.50-5.40); RED CELL DISTRIBUTION WIDTH 12.6 % (11.5-14.5); WHITE BLOOD COUNT 7.7 x10^3/uL (4.0-11.0)
[2020-02-12 13:41] LABS: PROTHROMBIN TIME PATIENT 12.8 SEC (11.7-14.0)
[2020-02-12 13:51] LABS: ALBUMIN 3.6 g/dL (3.4-5.0); C-REACTIVE PROTEIN 0.8 mg/L (0-3.3); CALCIUM 8.8 mg/dL (8.5-10.1); CREATININE 0.9 mg/dL (0.6-1.0); GFR 61.4; POTASSIUM 4.2 mmol/L (3.5-5.1)
[2020-02-13 01:10] LABS: HEMOGLOBIN A1C 6.3 % (4.8-5.6)
== END ==
LOC: SURGPAT 12:37
PROVIDERS: ATTEND Orthopaedic Surgery
DX: Z01.818 Encounter for other preprocedural examination (principal); Z11.59 Encounter for screening for other viral diseases; M17.12 Unilateral primary osteoarthritis, left knee; Z79.899 Other long term (current) drug therapy
CPT/HCPCS: 36415; 80048; 82040; 82306; 83036; 85025; 85610; 85730; 86140; 87641; U0003

== ENCOUNTER 2020-02-16 06:09 | Observation (INO) | payer MEDICARE, OTHER ==
--- NOTE | 2020-02-15 17:59 | PDOC1 ---
History and Physical Date of Admission Date of Admission 02/16/2020 Identification/Chief Complaint Chief Complaint Left knee pain, left knee osteoarthritis Source Source: Chart review History of Present Illness History of Present Illness Jazmin is a 74-year-old woman with left knee osteoarthritis, unrelieved with nonoperative treatment. She reports that her LEFT knee bothers her with cold weather, stairs, and that she is unable to walk a quarter of a mile on that knee. For her LEFT knee she states that she has tried physical therapy, icing, Celebrex, and Tylenol although this does not help much. She had a right total knee arthroplasty in 2019 with which she is pleased Past Surgical History Past Surgical History: Arthroscopy, Cholecystectomy, Total knee replacement Family History Family History: Family History Unknown Social History Smoke: No ALCOHOL: occassional Current Problem List Problem List Unilateral primary osteoarthritis, left knee - M17.12 Current Medications Current Medications Current Medications Ondansetron HCl (Zofran) 4 mg PRN Q6HRS PRN IV NAUSEA/VOMITING; Start 02/16/20 at 07:00; Stop 02/17/20 at 06:59 Fentanyl Citrate (Fentanyl 2ml Vial) 25 mcg PRN Q5MIN PRN IV MILD PAIN 1-3; Start 02/16/20 at 07:00; Stop 02/17/20 at 06:59 Fentanyl Citrate (Fentanyl 2ml Vial) 50 mcg PRN Q5MIN PRN IV MODERATE TO SEVERE PAIN; Start 02/16/20 at 07:00; Stop 02/17/20 at 06:59 Morphine Sulfate (Morphine Sulfate) 1 mg PRN Q10MIN PRN IV SEVERE PAIN 7-10; Start 02/16/20 at 07:00; Stop 02/17/20 at 06:59 Ringer's Solution 1,000 ml @ 30 mls/hr Q24H IV ; Start 02/16/20 at 07:00; Stop 02/16/20 at 18:59 Lidocaine HCl (Xylocaine-Mpf 1% 2ml Vial) 2 ml PRN 1X PRN ID PRIOR TO IV START; Start 02/16/20 at 07:00; Stop 02/17/20 at 06:59 Hydromorphone HCl (Dilaudid) 0.5 mg PRN Q10MIN PRN IV SEV PAIN, Second choice; Start 02/16/20 at 07:00; Stop 02/17/20 at 06:59 Prochlorperazine Edisylate (Compazine) 5 mg PACU PRN PRN IV NAUSEA, MRX1; Start 02/16/20 at 07:00; Stop 02/17/20 at 06:59 Morphine Sulfate 5 mg/Ketorolac Tromethamine 30 mg/Ropivacaine 60 ml/Epinephrine HCl 0.5 mg/Sodium Chloride 100 ml @ 100 mls/hr 1X ONCE INT ART ; Start 02/16/20 at 06:00; Stop 02/16/20 at 06:59 Acetaminophen (Tylenol) 1,000 mg 1X PREOP PRN PO PRIOR TO PROCEDURE; Start 02/16/20 at 06:00; Stop 02/16/20 at 18:00 Cefazolin Sodium/ Dextrose 50 ml @ 100 mls/hr 1X PREOP PRN IV PRIOR TO PROCEDURE; Start 02/16/20 at 06:00; Stop 02/16/20 at 18:00 Tranexamic Acid 1000 mg/Sodium Chloride 60 ml @ 60 mls/hr 1X PERIOP ONCE INJ ; Start 02/16/20 at 06:00; Stop 02/16/20 at 06:59 Tranexamic Acid 1000 mg/Sodium Chloride 60 ml @ 60 mls/hr 1X PERIOP ONCE INJ ; Start 02/16/20 at 08:00; Stop 02/16/20 at 08:59 Celecoxib (CeleBREX) 400 mg 1X PREOP PRN PO PRIOR TO PROCEDURE; Start 02/16/20 at 06:00; Stop 02/16/20 at 18:00 Active Scripts Active Reported Metformin Hcl 500 Mg Tablet 500 Mg PO DAILY Lipitor (Atorvastatin Calcium) 10 Mg Tablet 81 Tab PO QHS Vitamin E (Vitamin E (Dl,Tocopheryl Acet)) 400 Unit Capsule 400 Unit PO DAILY B-12 (Cyanocobalamin (Vitamin B-12)) 500 Mcg Tablet 500 Mcg PO DAILY Vitamin C (Ascorbic Acid) 100 Mg Tablet 1,000 Mg PO DAILY Citracal + D Maximum Caplet (Calcium Citrate/Vitamin D3) 1 Each Tablet 1 Each PO DAILY Allergies Allergies: Coded Allergies: No Known Drug Allergies (Unverified , 09/09/18) Physical Exam General: Alert, Cooperative HEENT: Atraumatic Lungs: Normal air movement Heart: RRR Abdomen: Soft Extremities: Other ( The LEFT knee shows a mildly antalgic gait. There is trace varus alignment. No masses. No detectable effusion. Tenderness on the joint lines. Range of motion is 5-115 degrees. There is crepitus with range of motion, and pain at the extremes of motion. The knee is stable to varus and valgus stress without subluxation or laxity. Muscle strength is slightly weak for the quadriceps 4+/5 which may be due to pain or avoidance, and does not seem neurogenic, and the muscle tone and bulk is slightly decreased. The hamstring strength is 5/5. The skin is normal with no scars, rashes, lesions or ulcers. L ight touch sensation is intact. No edema and no varicosities. Dorsalis pedis pulse is intact and capillary refill is normal) Neuro: Normal speech, Sensation intact Images Images Report reviewed, images independently reviewed, narrowing, varus malalignment, osteophyte formation, probable medial tibial sclerosis, Kellgren Gordon grade 3 osteoarthritis changes of the left knee. [facility] [address] [place] [address] IMAGING REPORT Signed PATIENT: JAZMIN URIOSTEGUI ACCOUNT: [id number] : 1945 LOCATION: [facility] AGE: 74 SEX: F EXAM STATUS: REG CLI ORD. PHYSICIAN: JEFRY HILL MD REASON: PROCEDURE: KNEE LEFT 2V KNEE STANDING BILAT AP, KNEE LEFT 2V, KNEE RIGHT 2V Clinical Indication: f/u 1 year right knee replacement Comparison: Right knee, 2 views September 22, 2018. Findings: Bilateral knees sunrise and lateral views. Bilateral AP standing views. Right: Right knee arthroplasty is stable. There is no acute fracture. Joint effusion is similar to prior study. Resurfacing of the patella. Patella in anatomic position. Left: There is moderate medial compartment narrowing, stable compared to prior study. Small marginal osteophytes in all 3 compartments. Small joint effusion. Tiny ossific body anterior to the patella, indeterminate. IMPRESSION: 1. No acute bone abnormality. 2. There is right knee joint effusion, similar to prior study. 3. Small left knee joint effusion. 4. Moderate arthropathy of the left knee medial compartment. Electronically signed by: Kervin Sharp MD (09/03/2019 4:16 PM) [id number] DICTATED and SIGNED BY: KERVIN SHARP MD DATE: 09/03/19 1616 VTE Prophylaxis Ordered VTE Prophylaxis Devices: Yes VTE Pharmacological Prophylaxi: Yes Assessment/Plan Assessment/Plan She does have osteoarthritis of her left knee and we discussed the options for treatment previously. She has tried nonoperative treatment without much relief and I recommend total knee arthroplasty. We discussed the potential risks of infection, neurovascular injury, fracture, bleeding, blood clots, malalignment, need for revision surgery, or other potential surgical or anesthetic complications. I recommended the robotic NAVIO instrumentation and we discussed my reasoning. We also discussed postoperative treatment and expectations including residual numbness over the knee. All of her questions were answered a nd she is here for elective left total knee arthroplasty today. Justicifation of Admission Dx: Justifications for Admission: Justification of Admission Dx: N/A JEFRY HILL MD Feb 15, 2020 17:59
[2020-02-16] VITALS (8 sets, daily range): BP systolic 138–166; BP diastolic 54–66
[~2020-02-16] VITALS: Ht 154.9 cm; Wt 70.3 kg
[~2020-02-16 06:09] MED LIST changes: +ACETAMINOPHEN 500 MG TABLET PO PRN; +CELECOXIB 100 MG CAPSULE. PO PRN; +MORPHINE SULFATE 5 MG, KETOROLAC 30MG VIAL 30 MG, ROPIVacaine 0.5% PF 60 ML, EPINEPHrin... INT ART ONE; -OXYC-325 PO; +TRANEXAMIC ACID 1,000 MG in IV NS 50ML -- 1ST BAG INJ ONE
[2020-02-16] MEDS ORDERED: TOBRAMYCIN POWDER 1.2 GM VIAL. ONE (06:54)
[2020-02-16] MEDS ORDERED: VANCOMYCIN 1 GM VIAL. ONE ×2 (06:54)
[2020-02-16] MEDS ORDERED: MORPHINE SULFATE 2 MG/ML VIAL. IV PRN (07:00)
[2020-02-16] MEDS ORDERED: fentaNYL PF VIAL 100 MCG/2 ML VIAL ONE ×2 (07:00→07:50)
[2020-02-16] MEDS ORDERED: HYDROmorphone 2 MG/ML VIAL IV PRN (07:00)
[2020-02-16] MEDS ORDERED: ceFAZolin 2GM PREMIX 2 GM/50 ML BAG IV ONE (07:00)
[2020-02-16] MEDS ORDERED: LIDOCAINE 2% PF 5 ML VIAL. ONE (07:00)
[2020-02-16] MEDS ORDERED: ONDANSETRON PF 4 MG/2 ML VIAL. IV PRN (07:00)
[2020-02-16] MEDS ORDERED: fentaNYL PF VIAL 100 MCG/2 ML VIAL IV PRN ×2 (07:00)
[2020-02-16] MEDS ORDERED: PROCHLORPERAZINE 10 MG/2 ML VIAL. IV PRN (07:00)
[2020-02-16] MEDS ORDERED: PROPOFOL 10 MG/ML (20ML) VIAL. IV ONE (07:00)
[2020-02-16] MEDS ORDERED: LIDOCAINE 1% PF 2 ML VIAL. ID PRN (07:00)
[2020-02-16] MEDS: IV RINGERS,LACTATED 1000ML 1,000 ML IV SCH ×2 (07:01→10:39)
[2020-02-16] MEDS ORDERED: DEXAMETHASONE SOD PHOS 4 MG/ML VIAL ONE (07:36)
[2020-02-16] MEDS ORDERED: SEVOFLURANE 61 TO 120 MINUTES. IH ONE (07:36)
[2020-02-16] MEDS ORDERED: ONDANSETRON PF 4 MG/2 ML VIAL. ONE (07:36)
[2020-02-16] MEDS ORDERED: TRANEXAMIC ACID 1,000 MG in IV NS 50ML -- 2ND BAG INJ ONE (08:00)
[2020-02-16] MEDS ORDERED: HYDROmorphone 2 MG/ML VIAL ONE (08:48)
[2020-02-16] MEDS ORDERED: ePHEDrine PF IN SALINE 50 MG/10 ML SYRINGE. IV ONE (09:35)
[2020-02-16] MEDS ORDERED: IV NORMAL SALINE 1000ML BAG 1,000 ML IV SCH (09:46)
--- NOTE | 2020-02-16 09:46 | PDOC4 ---
Operative Note Operative Note Date of Procedure: February 16, 2020 Pre-Op Diagnosis: Unilateral primary osteoarthritis, left knee. M17.12 Post-Op Diagnosis: same Procedure: left total knee arthroplasty with patella resurfacing, robotic assisted, CPT 01139 Surgeon: Jefry Medrano MD Carrot Grader Inspector: NAY Holley Anesthesia: General EBL: 150 mL Specimens Obtained: left knee bone and soft tissue Complications: none Drains: Hemovac plus pain catheter Tourniquet time: 74 Minutes Tourniquet Pressure: 300 mm Hg Indications for Procedure: Knee arthritis pain, affecting quality of life, unrelieved by nonoperative management Findings: Severe osteoarthritis with bone on bone contact medially with full thickness cartilage loss in the patellofemoral and lateral compartments Implants: Tracy & Nephew Journey II Total Knee System, Size 3 left bicruciate stabilized Journey II BCS cobalt chrome femoral component, size 2 left Journey nonporous tibial baseplate, size 1-2 15 mm left Journey II BCS XLPE articular insert, 29 mm oval Sarita II resurfacing patellar component Procedure in Detail: The patient was identified in the preoperative holding area, and the correct left lower extremity was marked by me. The patient was taken to the operating room where the patient was anesthetized by the Department of Anesthesia. P reoperative antibiotics were given intravenously. Tranexamic acid 1 g was given intravenously for intraoperative hemostasis. A "time-out" procedure was performed. The patient was positioned supine on the operative table with a tourniquet on the upper left thigh. A left hip bump and heel bump were attached to the operating table for later intraoperative positioning. The left lower limb was thoroughly scrubbed, then sterile Chloraprep solution was applied, and the limb was draped in sterile fashion. The operating team wore exhaust ventilated hoods with Creditable Personal Protection Toga Zippered Peel-Away protection system. An impervious stockinet and an adhesive drape were used such that the skin was entirely covered. The limb was exsanguinated with an Esmarch bandage, and the tourniquet was inflated. A midline skin incision was made with a scalpel using the patella and tibial tubercle as landmarks. Electrocautery was used for hemostasis. My assistant reading teacher used rake retractors and a laparotomy sponge. A medial parapatellar arthrotomy incision was used with extension into the distal quadriceps tendon. The patella was retracted laterally and Hohmann retractors were now used by my assistant reading teacher. Excess synovium, the menisci, and the cruciate ligaments were resected sharply. A periarticular multimodal ropivacaine anesthetic injection was used in the suprapatellar pouch and distal quadriceps muscle. The patella was everted and exposed. The patella thickness was measured with a caliper, and then cut freehand with a saw, using caliper measurements to assess the resection. The lateral retinaculum was partially released from the lateral patella using electrocautery. Rongeurs were used to make sure there were no remaining exposed patellar osteophytes medially or laterally. The patella was sized, and then drilled for an oval three-peg patella component. The tibial tracker array for the NAVIO system was applied to the tibial crest four finger breadths below the tibial tubercle, using percutaneous incisions and bicortical pins. The femoral tracker array was applied outside of the original incision using two separate stab incisions using bicortical pins. Checkpoint verification pins were applied to the femur and tibia. Using the point probe, the medial and lateral malleoli were localized and the locations were stored. The center of the tibia was noted at the anterior cruciate ligament insertion and stored. The center of the femur was marked at the intersection of Whitesidess line with the transepicondylar axis. The hip center calculation was performed with range of motion of the hip. The femur neutral position was identified, and simulated weightbearing was performed with axial compression on the foot. Range of motion without stress was performed and the data collected. Range of motion with valgus stress, and range of motion with varus stress data collection was also performed. Rotational references include the Whitesidess line, and the trans-epicondylar axis. The femoral articular surface was now mapped in 3 dimensions using the point probe and digital data collected. The tibial condyle articular surfaces and cortical edges were mapped in 3 dimensions using the point probe including the medial and lateral tibial plateau. Implant planning was now performed on-screen with manipulation of the implant sizes, cut thicknesses and gaps, component rotation, component flexion/extension and component varus/valgus until satisfactory ligament balance, alignment and stability of the knee was expected throughout the range of motion. My assistant reading teacher held a Hohmann retractor, a medial Z-retractor, and an Army-Kapowsin retractor to protect the medial and lateral collateral ligaments, the patellar tendon, the skin and the other soft tissues. The point probe was used to confirm the location of the checkpoint verification pins. The distal femoral surface was now prepared using the Anspach royce with footpedal, and the NAVIO handpiece for bone removal to the previously planned distal femoral resection. The crosshairs at the pin locations were marked by using a mallet and the point probe for definitive location. A 5-in-1 Journey II cutting guide was then applied and the position was checked with the virtual reji wing from the NAVIO to ensure proper placement as the pins were applied. The posterior, anterior, and all chamfer cuts were made with the oscillating saw. Excess bone was removed with an osteotome and rongeur s. The tibial cutting guide was applied, positioned using the NAVIO virtual reji wing, and secured to the upper tibia using three pins at the previously planned location. The virtual reji wing was used to confirm the resection depth, slope and coronal alignment. The upper tibia was cut made with an oscillating saw. My assistant reading teacher held Hohmann retractors and a posterior cruciate ligament retractor to protect the medial and lateral collateral ligaments, the patellar tendon, the skin, the peroneal nerve and the other soft tissues. The upper tibia was sized with a trial baseplate. The posterior compartment was cleared of osteophytes and loose bodies. The periarticular anesthetic injection was used in the posterior compartment. The box cut for a posterior stabilized component was made. A preliminary reduction was performed with a trial femur, trial tibial baseplate and trial polyethylene. The NAVIO system was used to confirm range of motion, and postoperative stressed gap assessment. No additional releases were required. The stability was assessed using different thicknesses of tibial articular surface to find satisfactory stability and good range of motion. The rotation of the tibial component was marked on the upper tibia. Final trial reduction was now performed verifying patella tracking and tibiofemoral stability and alignment. The bone pins and tracker arrays were removed, and the checkpoint verification pins were removed. The tibia preparation was completed with a drill, saw, and fin punch at the previously noted rotation. The final implants were verified and opened. Outer gloves were changed by the operating team. Betadine lavage was used. The bone cuts were irrigated with saline using the Cytox InterPulse device and then dried with suction and laparotomy sponges. Two packages of Tracy + Nephew Rally HV bone cement were mixed in powdered form with Vancomycin 1gm and Tobramycin 1.2 gm, and then vacuum-mixed with the monomer, and placed into a cement gun. The cut surfaces of the bone were thoroughly dried with suction and with laparotomy sponges for cement interdigitation. The final components were cemented into place. The knee was kept at full extension while the cement hardened, and excess cement was removed. Tranexamic acid 1 g was redosed intravenously for additional intraoperative hemostasis. The tourniquet was released, and electrocautery was used for hemostasis. A final periarticular anesthetic injection was used for pain relief. The bone pin sites on the tibial crest were closed with #3-0 Nylon sutures. A final check of [id number] and stability was made, and the polyethylene implant final size was chosen. The polyethylene implant was secured to the tibial baseplate, and the knee was reduced a final time and range of motion and stability was confirmed. Thorough irrigation was used. A pain catheter, and a 15 Fr Hemovac were inserted. Topical Vancomycin 1 gm was used during the closure. The arthrotomy was closed with interrupted [id number] #1 Vicryl suture. The arthrotomy incision was then run with #1 STRATAFIX Symmetric PDS Plus Knotless suture. The subcutaneous tissues were approximated initially with #2-0 Vicryl inverted interrupted sutures by my assistant reading teacher. Next the subcuticular layer was approximated in a running fashion with #3-0 STRATAFIX suture by my assistant reading teacher. The skin incision was then covered and reinforced by my assistant reading teacher with Acticoat, followed by a LIZETH single use negative pressure wound therapy dressing Soft roll and an Tod wrap were applied. Needle and sponge counts were correct. There were no apparent complications. The patient returned to the recovery room in stable condition. JEFRY MEDRANO MD Feb 16, 2020 09:46
[2020-02-16] MEDS ORDERED: fentaNYL PF VIAL 100 MCG/2 ML VIAL IVP PRN ×2 (10:00)
[2020-02-16] MEDS ORDERED: MORPHINE SULFATE 2 MG/ML VIAL. IVP PRN (10:00)
[2020-02-16] MEDS ORDERED: MORPHINE SULFATE 4 MG/ML VIAL. IVP PRN (10:00)
[2020-02-16] MEDS ORDERED: METOCLOPRAMIDE HCL 10 MG/2 ML VIAL. IVP PRN (10:00)
[2020-02-16] MEDS ORDERED: DEXTROSE 50% 25 GM / 50ML DISP.SYRIN. IV PRN (10:00)
[2020-02-16] MEDS ORDERED: ZOLPIDEM 5 MG TABLET. PO PRN (10:00)
[2020-02-16] MEDS ORDERED: CALCIUM CARBONATE 500 MG TAB.CHEW PO PRN (10:00)
[2020-02-16] MEDS ORDERED: 0.9 % SODIUM CHLORIDE 10 ML DISP.SYRIN. IV PRN (10:00)
[2020-02-16] MEDS ORDERED: PROCHLORPERAZINE 5 MG TABLET. PO PRN (10:00)
[2020-02-16] MEDS ORDERED: diphenhydrAMINE 50 MG/ML VIAL IVP PRN (10:00)
[2020-02-16] MEDS ORDERED: oxyCODONE/APAP 5/325 1 TAB TABLET PO PRN (10:30)
--- NOTE | 2020-02-16 10:39 | RAD ---
KNEE LEFT 2V History: Reason: POST OP / Spl. Instructions: / History: Technique: 2 views left knee. Comparison: September 03, 2019 Findings: Interval left total knee arthroplasty. Expected postoperative changes subcutaneous and intra-articular gas. Surgical drain noted. Normal alignment. No fracture. Impression: 1. Interval left total knee arthroplasty. No immediate hardware complications. Electronically signed by: Ken Dominguez DO (02/16/2020 10:36 AM) AJAY
[2020-02-16] MEDS ORDERED: INSULIN LISPRO 100 UNIT/ML 3ML VIAL for OP,RR ONLY. SQ PRN (10:45)
[2020-02-16] MEDS: ONDANSETRON ODT 4 MG TAB.RAPDIS. PO SCH ×2 (11:54→17:51)
[2020-02-16] MEDS: ONDANSETRON PF 4 MG/2 ML VIAL. IVP SCH ×2 (11:54→17:51)
[2020-02-16] MEDS: INSULIN LISPRO 300 UNITS/3 ML VIAL. SQ SCH ×2 (11:54→16:21)
--- NOTE | 2020-02-16 11:54 | NUR ---
Patient arrived around 1115 in a bed from PACU. Daughter at bedside. Patient is on room air, ALEKSANDER hose on RLE, KINA on LLE, SCD on RLE, and vital signs stable. BS elevated and insulin given down in PACU prior to transfer. Patient with minimal appetite so no insulin given up here again upon admission due to new diabetic diagnosis. Diabetes education completed by NIRMAL Livingston to daughter and patient. LIZETH covered with NATALIE wrap on LLE, IAC intact and hemovac unclamped and working properly at this time. IV in right wrist working without complications. Denies urge to void. Will continue to monitor.
--- NOTE | 2020-02-16 13:42 | PDOC ---
Provider Note Provider Note Postop x-ray report reviewed, images independently reviewed. Satisfactory TKA without apparent complications. [facility] [address] [place] [address] IMAGING REPORT Signed PATIENT: DANIELLE URIOSTEGUI ACCOUNT: [id number] : 1945 LOCATION: [address] [place] [address] AGE: 74 SEX: F EXAM STATUS: ADM IN ORD. PHYSICIAN: JEFRY HILL MD REASON: POST OP PROCEDURE: KNEE LEFT 2V KNEE LEFT 2V History: Reason: POST OP / Spl. Instructions: / History: Technique: 2 views left knee. Comparison: September 03, 2019 Findings: Interval left total knee arthroplasty. Expected postoperative changes subcutaneous and intra-articular gas. Surgical drain noted. Normal alignment. No fracture. Impression: 1. Interval left total knee arthroplasty. No immediate hardware complications. Electronically signed by: Mervin Karimi DO (02/16/2020 10:36 AM) [facility] DICTATED and SIGNED BY: MERVIN KARIMI DO DATE: 02/16/20 1036 Justicifation of Admission Dx: Justifications for Admission: Justification of Admission Dx: N/A JEFRY HILL MD Feb 16, 2020 13:42
--- NOTE | 2020-02-16 16:21 | NUR ---
Patients evening blood sugar was 153. SSI to be given if above 150. Patient did not take her metformin this morning so it will be given tonight with dinner. Patient hates needles and does not want the insulin since her blood sugar has been regulated with the metformin and this is also a new diagnosis for her. Will continue to monitor.
[2020-02-16] MEDS: metFORMIN 500 MG TABLET PO SCH (16:49)
[2020-02-16] MEDS: oxyCODONE/APAP 5/325 1 TAB TABLET PO PRN (16:50)
[2020-02-16] MEDS: KETOROLAC 30MG VIAL 30 MG, BUPIVACAINE MPF 0.25% 20 ML, EPINEPHrine 0.5 MG in TOTAL VOL... INT ART SCH (16:51)
[2020-02-16] MEDS: ASPIRIN ENTERIC COATED 325 MG TABLET.DR. PO SCH (20:41)
[2020-02-16] MEDS: ATORVASTATIN CALCIUM 10 MG TABLET. PO SCH (20:41)
[2020-02-17 03:24] VITALS: BP 142/52
[2020-02-17] MEDS: KETOROLAC 30MG VIAL 30 MG, BUPIVACAINE MPF 0.25% 20 ML, EPINEPHrine 0.5 MG in TOTAL VOL... INT ART SCH (05:37)
[2020-02-17] MEDS: ONDANSETRON ODT 4 MG TAB.RAPDIS. PO SCH ×2 (06:00)
[2020-02-17] MEDS: ONDANSETRON PF 4 MG/2 ML VIAL. IVP SCH ×2 (06:00)
[2020-02-17] MEDS ORDERED: MAGNESIUM HYDROXIDE 2,400 MG/30 ML ORAL.SUSP. PO PRN (06:00)
[2020-02-17 06:31] VITALS: BP 140/57
[2020-02-17 07:54] LABS: HEMATOCRIT 33.7 % (36.0-47.0); HEMOGLOBIN 11.3 g/dL (12.0-15.5); RED BLOOD COUNT 3.75 x10^6/uL (3.50-5.40); RED CELL DISTRIBUTION WIDTH 12.5 % (11.5-14.5); WHITE BLOOD COUNT 7.4 x10^3/uL (4.0-11.0)
[2020-02-17] MEDS: INSULIN LISPRO 300 UNITS/3 ML VIAL. SQ SCH ×3 (08:00→16:41)
--- NOTE | 2020-02-17 08:00 | NUR ---
Jazmin is doing well this am. she has good sensation, motion and pulses bilateral lower extremity. Hemovac is not patent and does not hold compression.
[2020-02-17] MEDS: SENNOSIDES/DOCUSATE 8.6/50MG TABLET. PO SCH (08:35)
[2020-02-17] MEDS: MULTIVITAMIN with MINERAL TABLET. PO SCH (08:35)
[2020-02-17] MEDS: metFORMIN 500 MG TABLET PO SCH (08:35)
[2020-02-17] MEDS: CELECOXIB 100 MG CAPSULE. PO SCH (08:35)
[2020-02-17] MEDS: oxyCODONE/APAP 5/325 1 TAB TABLET PO PRN ×3 (08:35→21:17)
[2020-02-17] MEDS: ASPIRIN ENTERIC COATED 325 MG TABLET.DR. PO SCH ×2 (08:35→21:17)
[2020-02-17] MEDS ORDERED: ONDANSETRON PF 4 MG/2 ML VIAL. IVP PRN (12:00)
[2020-02-17] MEDS ORDERED: ONDANSETRON ODT 4 MG TAB.RAPDIS. PO PRN (12:00)
[2020-02-17] MEDS ORDERED: BISACODYL 10 MG SUPP.RECT. PR PRN (16:00)
[2020-02-17 18:34] VITALS: BP 143/52
--- NOTE | 2020-02-17 20:56 | PDOC ---
PROGRESS NOTES Date of Service DATE: 02/17/20 TIME: 20:55 Subjective Subjective Pain controlled. No major complaints. Objective Vital Signs Vital Signs Date Time Temp Pulse Resp B/P (MAP) Pulse Ox O2 Delivery O2 Flow Rate FiO2 02/17/20 18:34 98.5 64 16 143/52 (82) 94 Room Air 98.5 02/16/20 10:07 10 Physical Exam LIZETH dressing intact. Pain catheter and drain have been removed. Calf soft and nontender. Good AROM of ankle. Minimal erythema/warmth. Not yet safely ambulat ing with walker. Requires PT or nursing assistance, and gait belt for safe transition from chair or bed to walker. Labs Laboratory Tests Test 02/16/20 10:30 02/16/20 11:28 02/16/20 16:11 02/17/20 07:05 Glucose (Fingerstick) 204 mg/dL (70-99) 216 mg/dL (70-99) 153 mg/dL (70-99) 138 mg/dL (70-99) Test 02/17/20 07:40 02/17/20 11:24 02/17/20 16:38 White Blood Count 7.4 x10^3/uL (4.0-11.0) Red Blood Count 3.75 x10^6/uL (3.50-5.40) Hemoglobin 11.3 g/dL (12.0-15.5) Hematocrit 33.7 % (36.0-47.0) Mean Corpuscular Volume 90 fL (79-100) Mean Corpuscular Hemoglobin 30 pg (25-35) Mean Corpuscular Hemoglobin Concent 34 g/dL (31-37) Red Cell Distribution Width 12.5 % (11.5-14.5) Platelet Count 183 x10^3/uL (140-400) Glucose (Fingerstick) 132 mg/dL (70-99) 103 mg/dL (70-99) Laboratory Tests Test 02/17/20 07:05 02/17/20 07:40 02/17/20 11:24 02/17/20 16:38 Glucose (Fingerstick) 138 mg/dL (70-99) 132 mg/dL (70-99) 103 mg/dL (70-99) White Blood Count 7.4 x10^3/uL (4.0-11.0) Red Blood Count 3.75 x10^6/uL (3.50-5.40) Hemoglobin 11.3 g/dL (12.0-15.5) Hematocrit 33.7 % (36.0-47.0) Mean Corpuscular Volume 90 fL (79-100) Mean Corpuscular Hemoglobin 30 pg (25-35) Mean Corpuscular Hemoglobin Concent 34 g/dL (31-37) Red Cell Distribution Width 12.5 % (11.5-14.5) Platelet Count 183 x10^3/uL (140-400) Assessment Assessment POD #1 after TKA Plan Plan of Care Continue POC. Discharge planning for tomorrow. Aspirin 325 mg po BID and mobilization for DVT prophylaxis. Justicifation of Admission Dx: Justifications for Admission: Justification of Admission Dx: N/A JEFRY HILL MD Feb 17, 2020 20:56
[2020-02-17] MEDS: ATORVASTATIN CALCIUM 10 MG TABLET. PO SCH (21:17)
[2020-02-18 06:00] VITALS: BP 155/59
[2020-02-18 07:06] LABS: HEMATOCRIT 30.9 % (36.0-47.0); HEMOGLOBIN 10.4 g/dL (12.0-15.5)
[2020-02-18] MEDS: INSULIN LISPRO 300 UNITS/3 ML VIAL. SQ SCH ×2 (07:06→12:00)
[2020-02-18] MEDS: SENNOSIDES/DOCUSATE 8.6/50MG TABLET. PO SCH (07:47)
[2020-02-18] MEDS: CELECOXIB 100 MG CAPSULE. PO SCH (07:48)
[2020-02-18] MEDS: ASPIRIN ENTERIC COATED 325 MG TABLET.DR. PO SCH (07:48)
[2020-02-18] MEDS: MULTIVITAMIN with MINERAL TABLET. PO SCH (07:48)
[2020-02-18] MEDS: metFORMIN 500 MG TABLET PO SCH (07:48)
[2020-02-18] MEDS: oxyCODONE/APAP 5/325 1 TAB TABLET PO PRN ×3 (07:48→16:02)
--- NOTE | 2020-02-18 13:57 | PDOC3 ---
Discharge Summary Visit Information Date of Admission: Feb 16, 2020 Date of Discharge: Feb 18, 2020 Admitting Diagnosis: osteoarthritis left knee, aftercare after tka Final Diagnosis same Brief Hospital Course Allergies Allergies Coded Allergies Type Severity Reaction Last Updated Verified No Known Drug Allergies 02/16/20 No Vital Signs Vital Signs Date Time Temp Pulse Resp B/P (MAP) Pulse Ox O2 Delivery O2 Flow Rate FiO2 02/18/20 13:05 96 Room Air 02/18/20 06:00 98.4 76 22 155/59 (91) 98.4 Lab Results Laboratory Tests Test 02/16/20 16:11 02/17/20 07:05 02/17/20 07:40 02/17/20 11:24 Glucose (Fingerstick) 153 mg/dL (70-99) 138 mg/dL (70-99) 132 mg/dL (70-99) White Blood Count 7.4 x10^3/uL (4.0-11.0) Red Blood Count 3.75 x10^6/uL (3.50-5.40) Hemoglobin 11.3 g/dL (12.0-15.5) Hematocrit 33.7 % (36.0-47.0) Mean Corpuscular Volume 90 fL (79-100) Mean Corpuscular Hemoglobin 30 pg (25-35) Mean Corpuscular Hemoglobin Concent 34 g/dL (31-37) Red Cell Distribution Width 12.5 % (11.5-14.5) Platelet Count 183 x10^3/uL (140-400) Test 02/17/20 16:38 02/18/20 06:15 02/18/20 06:20 Glucose (Fingerstick) 103 mg/dL (70-99) 106 mg/dL (70-99) Hemoglobin 10.4 g/dL (12.0-15.5) Hematocrit 30.9 % (36.0-47.0) Mean Corpuscular Hemoglobin Concent 34 g/dL (31-37) Laboratory Tests Test 02/17/20 16:38 02/18/20 06:15 02/18/20 06:20 Glucose (Fingerstick) 103 mg/dL (70-99) 106 mg/dL (70-99) Hemoglobin 10.4 g/dL (12.0-15.5) Hematocrit 30.9 % (36.0-47.0) Mean Corpuscular Hemoglobin Concent 34 g/dL (31-37) Brief Hospital Course 74 year old who presented with knee osteoarthritis, for elective total knee arthroplasty. The patient underwent total knee arthroplasty under general anesthesia the day of admission. Perioperative antibiotics and DVT prophylaxis were used. Postoperatively physical therapy and case management were consulted. The patient progressed and is stable for discharge. Discharge Information Condition at Discharge: Stable Follow Up: Weeks Disposition/Orders: D/C to Home w/ HH Scheduled Ascorbic Acid (Vitamin C), 1,000 MG PO DAILY, (Reported) Atorvastatin Calcium (Lipitor), 81 TAB PO QHS, (Reported) Calcium Citrate/Vitamin D3 (Citracal + D Maximum Caplet), 1 EACH PO DAILY, (Reported) Cyanocobalamin (Vitamin B-12) (B-12), 500 MCG PO DAILY, (Reported) Metformin Hcl (Metformin Hcl), 500 MG PO DAILY, (Reported) Vitamin E (Dl,Tocopheryl Acet) (Vitamin E), 400 UNIT PO DAILY, (Reported) Patient Instructions Patient Instructions Continue to weight bearing as tolerated with walker. Keep LIZETH dressing intact and dry.Follow up with Dr. Medrano's office Saturday Call for appointment [phone] unless already scheduled. Continue enteric coated aspirin 325 mg by mouth twice a day for 30 days to prevent blood clots. Justicifation of Admission Dx: Justifications for Admission: Justification of Admission Dx: N/A JEFRY MEDRANO MD Feb 18, 2020 13:57
--- NOTE | 2020-02-18 13:58 | SNU/HH DC ---
DISCHARGE WITH HOME HEALTH DISCHARGE INFORMATION: Discharge Date: Feb 18, 2020 Final Diagnosis: osteoarthritis left knee. Aftercare after total knee arthroplasty. Condition on Discharge: Stable CODE STATUS: Code Status: Full HOME HEALTH: Face to Face: I certify this patient is under my care and that I, or a nurse practitioner or physician's assistant grocery store manager working with me, had a face to face encounter that meets the physician face to face encounter requirements with this patient on 02/17/2020. Medical Complications: S/P Joint Replacement RN For Eval/Treatment: No Physical Therapy For: Evalulation/Treatment Occupational Therapy For: Evaluation/Treatment Pt Meets Homebound Status: Unsteady balance w/ amb,, Limited distance walking POST DISCHARGE ORDERS: Activity Instructions for Disc: Activity as tolerated, Progressive ambulation Weight Bearing Status after Di: As tolerated Bathing Instructions: Shower-keep dressing dry, No Tub Bath until see DIET AFTER DISCHARGE: Regular Wound/Incision Care: Keep wound/cast CDI, Do not change dressing Other wound/incision instructi: DO NOT change LIZETH dressing. It remains in plac e till your appointment CHECKS AFTER DISCHARGE: Checks after discharge: Check blood press - daily FOLLOW-UP: Follow Up With: Dr. Medrano on February 22, 2020 @ 9:15. Call if you have concerns TREATMENT/EQUIPMENT ORDERS: Adaptive Equipment Issued: None CERTIFICATION STATEMENT: Certification Statement: Certification Statement: Based on the above finding, I certify that this patient is confined to the home and needs intermittent [facility] care, physical therapy and/or speech therapy, or continues to need occupational therapy.~ This patient is under my care, and I have initiated the establishment of the plan of care.~ This patient will be followed by myself or a community physician who will periodically review the plan of care. Home Meds Reported Medications Metformin Hcl (METFORMIN HCL) 500 Mg Tablet, 500 MG PO DAILY for ANTI-DIABETIC, TAB 0 Refills 02/12/20 Atorvastatin Calcium (LIPITOR) 10 Mg Tablet, 81 TAB PO QHS for CHOLESTEROL, #90 TAB 1 Refill 09/09/18 Vitamin E (Dl,Tocopheryl Acet) (VITAMIN E) 400 Unit Capsule, 400 UNIT PO DAILY for SUPPLEMENT, CAP 08/20/18 Cyanocobalamin (Vitamin B-12) (B-12) 500 Mcg Tablet, 500 MCG PO DAILY for SUPPLEMENT, TAB 08/14/18 Ascorbic Acid (VITAMIN C) 100 Mg Tablet, 1000 MG PO DAILY for SUPPLEMENT, TAB 08/14/18 Calcium Citrate/Vitamin D3 (CITRACAL + D MAXIMUM CAPLET) 1 Each Tablet, 1 EACH PO DAILY for SUPPLEMENT, TAB 08/14/18 JEFRY MEDRANO MD Feb 18, 2020 13:58
[2020-02-18] MEDS ORDERED: OXYC-325 PO (14:02)
[2020-02-18] MEDS ORDERED: ASPI325T8 PO (14:03)
--- NOTE | 2020-02-18 17:00 | NUR ---
Patient left with her daughter around 1645. Discharge education completed by this nurse and therapy prior to discharge. LIZETH dressing addressed with patient and daughter. F/U appointment already made and discussed with patient. Scripts sent in for percocet and aspirin by Dr Medrano to [facility] in [facility]. Patient left with all her belongings. No concerns noted at discharge.
--- NOTE | 2020-02-18 18:06 | PATHOLOGY ---
[facility] Accession Number: [id number] . 01 Material submitted: . knee - LEFT KNEE BONE AND TISSUE. Modifiers: left . 01 Clinical history: . Left knee osteoarthritis . 02 Diagnosis: Segments of bone and soft tissue, robotic assisted left total knee arthroplasty: - Advanced degenerative arthritis. (JPM/db; 02/18/2020) LBQ 02/18/2020 1533 Local . 02 Electronically signed: . Oliver Guaman MD, Pathologist NPI- [id number] . 01 Gross description: . The specimen is received in formalin, labeled "Jazmin Rightmire, left knee bone and tissue". Received are multiple segments of bone, including the tibial plateau, admixed with soft tissue measuring 8.8 x 7.9 x 3.2 cm in aggregate dimensions. Meniscus is absent. The articular surfaces are smooth to granular in appearance with evidence of eburnation. The specimen is submitted representatively in cassette A1, following decalcification. (CAA; 02/16/2020) QAC/QAC 02/16/2020 1807 Local . 02 Pathologist provided ICD-10: M17.12 . 02 CPT . 452132, [id number] Specimen Comment: A courtesy copy of this report has been sent to [phone], [phone]- Specimen Comment: [id number] Specimen Comment: Report sent to / DR EDEN Performed at: 01 [facility] [address], [place] [id number] MD Solomon Bergman MD Phone: [phone] Performed at: 02 [facility] [address] [place], [place] [id number] MD Oliver Guaman MD Phone: [phone]
== END 2020-02-18 16:45 | disposition home health service (06) ==
LOC: SURG 06:09 → 4 SOUTHEST 10:00
PROVIDERS: ADMIT Orthopaedic Surgery; ATTEND Orthopaedic Surgery
DX: M17.12 Unilateral primary osteoarthritis, left knee (principal); Z96.651 Presence of right artificial knee joint; Z79.899 Other long term (current) drug therapy
CPT/HCPCS: 27447; 36415; 73560; 82962; 85014; 85018; 85027; 86850; 86900; 86901; 88304; 88311; 96365; 96366; 96376; 97116; 97150; 97162; 97165; 97530; 97535; A7015; C1713; G0378; G0379; J0171; J0690; J1100; J1170; J1815; J1885; J2270; J2405; J2704; J2795; J3010; J3260; J3370; J3490; J7030; J7120; A4461; C1769; C1776